=== PATIENT | male | born 1960 | race Caucasian/White ===

== ENCOUNTER 2019-06-16 06:38 | Day surgery (SDC) | payer BC ==
[2019-06-15 11:46] VITALS: BMI 34.5
[2019-06-16] MEDS ORDERED: PROPOFOL 20 ML ONE ×3 (07:43→09:08)
[2019-06-16 10:08] VITALS: TEMP 98
[2019-06-16 10:10] VITALS: BP 125/77; PULSE 80
--- NOTE | 2019-06-21 11:16 | PATH ---
Surgical Pathology Report Patient Name: TANVI PARRISH [facility]. Rec. #: [id number] /Age/Gender: 1960 (Age: 59) / M Account: [id number] Location: [facility] Taken: 06/16/2019 Received: 06/16/2019 Reported: 06/21/2019 Physicians: Pepe Fry M.D. Specimen(s) Received A: POLYPECTOMY LEFT COLON B: BX POLYP SPLENIC FLEXURE C: BX POLYP DISTAL RIGHT COLON D: BX POLYP PROXIMAL RIGHT COLON E: BX POLYP HEPATIC FLEXURE F: BX POLYP DISTAL SIGMOID COLON Clinical History History of polyps, family history colon cancer Postoperative diagnosis: Diverticulosis, colon polyps Final Diagnosis A. LEFT COLON, POLYP, HOT SNARE POLYPECTOMY: TUBULAR ADENOMA. B. SPLENIC FLEXURE, POLYP, BIOPSY: TUBULAR ADENOMA. C. DISTAL RIGHT COLON, POLYP, BIOPSY: SESSILE SERRATED POLYP. D. PROXIMAL RIGHT COLON, POLYP, BIOPSY: TUBULAR ADENOMA. E. HEPATIC FLEXURE, POLYP, BIOPSY: TUBULAR ADENOMA. F. DISTAL SIGMOID COLON, POLYP, BIOPSY: SESSILE SERRATED POLYP. Electronically Signed Kamla Ayala M.D. Gross Description A. Received in formalin, labeled "hot snare polypectomy left colon" are 2 quach, irregular portions of soft tissue measuring 0.2 and 0.5 cm. in greatest dimension. The specimens are submitted in toto in one cassette. B. Received in formalin, labeled "biopsy polyp splenic flexure" are 2 quach, irregular portions of soft tissue measuring 0.2 and 1.0 cm. in greatest dimension. The specimens are submitted in toto in one cassette. C. Received in formalin, labeled "biopsy polyp distal right colon" is a quach, irregular portion of soft tissue measuring 0.9 cm. in greatest dimension. The specimen is submitted in toto in one cassette. D. Received in formalin, labeled "biopsy polyp proximal right colon" are 2 quach, irregular portions of soft tissue measuring 0.2 and 0.4 cm. in greatest dimension. The specimens are submitted in toto in one cassette. E. Received in formalin, labeled "biopsy polyp hepatic flexure" are 3 quach, irregular portions of soft tissue ranging from 0.2-0.4 cm. in greatest dimension. The specimens are submitted in toto in one cassette. F. Received in formalin, labeled "biopsy polyp distal sigmoid colon" are 2 quach, irregular portions of soft tissue averaging 0.2 cm. in greatest dimension. The specimens are submitted in toto in one cassette. 06/17/2019 [facility]06/17/2019
== END 2019-06-16 10:00 | disposition home or self-care (01) ==
LOC: FASU-ENDO 06:38
PROVIDERS: ATTEND Internal Medicine Gastroenterology
PROC: 0DBN8ZX Excision of Sigmoid Colon, Via Natural or Artificial Opening Endoscopic, Diagnostic (ICD-10-PCS; 2019-06-16)
PROC: 0DBM8ZX Excision of Descending Colon, Via Natural or Artificial Opening Endoscopic, Diagnostic (ICD-10-PCS; 2019-06-16)
PROC: 0DBL8ZX Excision of Transverse Colon, Via Natural or Artificial Opening Endoscopic, Diagnostic (ICD-10-PCS; 2019-06-16)
PROC: 0DBK8ZX Excision of Ascending Colon, Via Natural or Artificial Opening Endoscopic, Diagnostic (ICD-10-PCS; principal; 2019-06-16 08:58)
DX: Z86.010 Personal history of colon polyps (principal); Z80.0 Family history of malignant neoplasm of digestive organs; D12.2 Benign neoplasm of ascending colon; D12.3 Benign neoplasm of transverse colon; D12.4 Benign neoplasm of descending colon; D12.5 Benign neoplasm of sigmoid colon; K57.30 Diverticulosis of large intestine without perforation or abscess without bleeding
CPT/HCPCS: 88305-TC

== ENCOUNTER 2020-10-09 07:16 | Day surgery (SDC) | payer BC ==
[2020-10-04 15:01] VITALS: BMI 31.7
[2020-10-09 10:07] VITALS: BP 110/57; PULSE 62; TEMP 97.9
== END 2020-10-09 10:07 | disposition home or self-care (01) ==
LOC: FASU-ENDO 07:16
PROVIDERS: ATTEND Internal Medicine Gastroenterology
PROC: 0DB78ZX Excision of Stomach, Pylorus, Via Natural or Artificial Opening Endoscopic, Diagnostic (ICD-10-PCS; 2020-10-09)
PROC: 0DB98ZX Excision of Duodenum, Via Natural or Artificial Opening Endoscopic, Diagnostic (ICD-10-PCS; principal; 2020-10-09 09:28)
DX: K29.50 Unspecified chronic gastritis without bleeding (principal)
CPT/HCPCS: 88305-TC; 88342-TC

== ENCOUNTER 2022-11-20 07:01 | Day surgery (SDC) | payer BC ==
[2022-11-18 14:45] VITALS: BMI 33.3
[2022-11-20] MEDS ORDERED: PROPOFOL 120 ML ONE (07:31)
[2022-11-20] MEDS ORDERED: LIDOCAINE HCL/PF 2% SDV 5ML VIAL ONE (07:31)
[2022-11-20 09:12] VITALS: BP 106/72; PULSE 88; RESP 18; TEMP 97.6
== END 2022-11-20 09:12 | disposition home or self-care (01) ==
LOC: FASU-ENDO 07:01
PROVIDERS: ATTEND Internal Medicine Gastroenterology
PROC: 0DBN8ZX Excision of Sigmoid Colon, Via Natural or Artificial Opening Endoscopic, Diagnostic (ICD-10-PCS; principal; 2022-11-20 08:12)
DX: Z12.11 Encounter for screening for malignant neoplasm of colon (principal); K63.5 Polyp of colon; K57.30 Diverticulosis of large intestine without perforation or abscess without bleeding; Z86.010 Personal history of colon polyps; Z80.0 Family history of malignant neoplasm of digestive organs
CPT/HCPCS: 88305-TC